=== PATIENT | male | born 2000 | race Two or more races ===

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

== ENCOUNTER 2019-09-22 06:50 | Emergency (ER) | payer OTHER ==
[~2019-09-22] VITALS: Ht 167.6 cm; Wt 54.5 kg
[2019-09-22] MEDS ORDERED: predniSONE 20 MG TAB PO ONE (07:15)
[2019-09-22] MEDS ORDERED: ALBUTEROL SULFATE 2.5 MG/0.5 ML INH NEB SOLN INH ONE (07:15)
[2019-09-22] MEDS ORDERED: diphenhydrAMINE 50 MG CAP PO ONE (07:15)
[2019-09-22] MEDS ORDERED: PRED20TA PO (09:07)
[2019-09-22] MEDS ORDERED: VENTAER INH (09:07)
[2019-09-22] MEDS ORDERED: BENA25CA4 PO (09:07)
[2019-09-22 09:23] VITALS: BP 105/70
== END 2019-09-22 09:31 | disposition home or self-care (01) ==
LOC: M ED 06:50
DX: L50.0 Allergic urticaria (principal)